=== PATIENT | female | born 2000 | race Hispanic/Latino ===

== ENCOUNTER 2025-04-26 10:21 | Inpatient (IN) | payer OTHER ==
[~2025-04-26] VITALS: Ht 154.9 cm; Wt 58.7 kg
[2025-04-26 11:03] LABS: PLATELET COUNT, AUTOMATED 421 10^3/uL (150-450)
[2025-04-26 11:30] LABS: ETHYL ALCOHOL (ETHANOL) 0.003 % (0.000-0.010)
[2025-04-26 11:32] LABS: ALT/SGPT 12 U/L (7.0-40); AST/SGOT 12 U/L (<34); CALCIUM LEVEL 9.6 MG/DL (8.5-10.1); CARBON DIOXIDE LEVEL 25 MMOL/L (20-31); CHLORIDE LEVEL 106 MMOL/L (98-107); CREATININE FOR GFR 0.69 MG/DL (0.55-1.30); GLOMERULAR FILTRATION RATE > 90.0 (>60); POTASSIUM SERUM 4.2 MMOL/L (3.5-5.1); SALICYLATE LEVEL < 3.0 MG/DL (<30); SODIUM LEVEL 141 MMOL/L (136-145)
[2025-04-26] MEDS ORDERED: HOME MED LIST COMPLETE! XX SCH (12:25)
[2025-04-26 13:49] LABS: AMPHETAMINES LEVEL URINE NEGATIVE (NEGATIVE)
[2025-04-26 13:50] LABS: BARBITURATES URINE NEGATIVE (NEGATIVE); BENZODIAZEPINES URINE NEGATIVE (NEGATIVE); CANNABINOIDS URINE NEGATIVE (NEGATIVE); COCAINE METABOLITE URINE NEGATIVE (NEGATIVE); METHADONE URINE NEGATIVE (NEGATIVE); OPIATES URINE NEGATIVE (NEGATIVE); PHENCYCLIDINE URINE NEGATIVE (NEGATIVE)
[2025-04-26] MEDS ORDERED: HALOPERIDOL 5 MG TAB PO PRN (14:45)
[2025-04-26] MEDS ORDERED: IBUPROFEN 400 MG TAB PO PRN (14:45)
[2025-04-26] MEDS ORDERED: OLANZapine 5 MG TAB PO PRN (14:45)
[2025-04-26] MEDS ORDERED: MAALOX 30 ML SUSP *UDC PO PRN (14:45)
[2025-04-26] MEDS ORDERED: MOM 30 ML SUSPENSION UDC PO PRN (14:45)
[2025-04-26] MEDS ORDERED: ACETAMINOPHEN 325 MG TAB PO PRN (14:45)
[2025-04-26] MEDS ORDERED: LORazepam 1 MG TAB PO PRN (14:45)
[2025-04-26 15:45] LABS: HCG, SERUM QUALITATIVE NEGATIVE (NEGATIVE)
[2025-04-26 16:12] VITALS: BP 104/56; TEMP 97.7; O2SAT 97
[2025-04-26] MEDS: NICOTINE 14 MG/24 HR TRANSDERMAL TD SCH (17:56)
[2025-04-27 06:37] VITALS: BP 95/54; TEMP 98.1; O2SAT 97
[2025-04-27] MEDS: SERTRALINE HCL 25 MG TABLET PO SCH (11:10)
[2025-04-27 15:04] VITALS: BP 110/68; TEMP 97.6; O2SAT 100
[2025-04-27] MEDS: PRAZOSIN 1 MG CAP PO SCH (20:19)
[2025-04-27] MEDS: traZODone 50 MG TAB PO PRN (20:19)
[2025-04-28 06:00] VITALS: BP 91/52; TEMP 97.2; O2SAT 95
[2025-04-28] MEDS: ONDANSETRON 4MG ORAL DISINTEGRATING TAB PO PRN (12:57)
[2025-04-28 15:20] VITALS: BP 116/58; TEMP 97.3; O2SAT 98
[2025-04-28] MEDS: traZODone 25MG PER 1/2 TABLET PO PRN (20:09)
[2025-04-29 06:50] VITALS: BP 100/52; TEMP 97.2; O2SAT 100
[2025-04-29 15:45] VITALS: BP 108/73; TEMP 97.4; O2SAT 100
[2025-04-29 20:02] VITALS: BP 108/73
[2025-04-30 06:45] VITALS: BP 102/50; TEMP 97.3; O2SAT 100
[2025-04-30] MEDS ORDERED: SERT25TA21 PO (08:45)
[2025-04-30] MEDS ORDERED: TRAZ-252 PO (08:45)
[2025-04-30] MEDS ORDERED: PRAZ1CAP PO (08:45)
== END 2025-04-30 10:09 | disposition home or self-care (01) | DRG 881 ==
LOC: M ED 10:21 → EDBD 10:21 → M ED INP 14:45 → M PSY 16:08
PROVIDERS: ADMIT Internal Medicine; ATTEND Psychiatry & Neurology Psychiatry
DX: F32.A Depression, unspecified (principal); R45.851 Suicidal ideations; F41.9 Anxiety disorder, unspecified; F43.10 Post-traumatic stress disorder, unspecified; Z91.51 Personal history of suicidal behavior; Z62.810 Personal history of physical and sexual abuse in childhood; Z91.82 Personal history of military deployment